=== PATIENT | male | born 1985 | race Two or more races ===

== ENCOUNTER → 2020-10-20 | Outpatient (CLI) | payer OTHER ==
[~2020-10-20] MED LIST: IOHEXOL 300 MG/ML 100ML BOTTLE IJ ONE; OMNIPAQUE ORAL SOLN 500ml 12mg/ml PO ONE
[2020-10-20 09:01] LABS: BUN/Creatinine Ratio 11.7; Calcium 9.2 mg/dL (8.5-10.1); Potassium 4.1 mmol/L (3.5-5.1)
== END | disposition home or self-care (01) ==
LOC: CT 08:13
DX: N20.0 Calculus of kidney (principal); R91.1 Solitary pulmonary nodule; K31.89 Other diseases of stomach and duodenum; K62.5 Hemorrhage of anus and rectum
CPT/HCPCS: 36415; 74177; 80048; Q9967

== ENCOUNTER → 2021-05-17 | Day surgery (SDC) | payer OTHER ==
[2021-05-17] MEDS: diphenhdrAMINE HCL 50 MG/1 ML VL ONE ×2 (11:04→11:08)
[2021-05-17] MEDS: fentaNYL CITRATE 100 MCG/2 ML VL ONE ×3 (11:04→11:11)
[2021-05-17] MEDS: MIDAZOLAM HCL 5 MG/ML-1ML VIAL ONE ×4 (11:04→11:14)
[2021-05-17 12:00] VITALS: BP 135/91
== END | disposition home or self-care (01) ==
LOC: GI 09:16
PROVIDERS: ATTEND Internal Medicine Gastroenterology
DX: K92.1 Melena (principal); K64.8 Other hemorrhoids; K63.89 Other specified diseases of intestine
CPT/HCPCS: 45378; J1200; J2250; J3010; J7030; 99152